=== PATIENT | male | born 1970 | race Caucasian/White ===

== ENCOUNTER 2019-11-22 23:40 | Emergency (ER) | payer OTHER ==
[~2019-11-22 23:40] MED LIST: ADVAIR 250/501 EA INH; AMOXIL500 MG PO; CATAFLAM50 MG PO; COMBIVENT1 ARO IH; KEFLEX500 MG PO; MEDROL DOSEPAK4 MG PO; NKHM PO; NORCO 325 MG-51 TAB PO; PERCOCET 325 MG1 TA2 PO; PERCOCET 325 MG1 TA7 PO; PROVENTIL0.09 MG/AC IH; SYMBICORT1 AE1 IH; TRAMADOL HCL50 MG PO; VICODIN ES 7501 TAB PO; Ventolin 02.5 MG/3 M INH
== END 2019-11-23 00:15 | disposition left against medical advice (07) ==
LOC: ED 23:40
DX: K13.79 Other lesions of oral mucosa (principal); Z53.21 Procedure and treatment not carried out due to patient leaving prior to being seen by health care provider

== ENCOUNTER → 2020-05-10 | Outpatient (CLI) | payer OTHER | END | disposition home or self-care (01) | LOC: RAD 09:33 | PROVIDERS: ATTEND Internal Medicine | DX: M54.5 Low back pain (principal); M25.511 Pain in right shoulder ==

== ENCOUNTER 2022-05-19 00:37 | Emergency (ER) | payer OTHER ==
[~2022-05-19] VITALS: Ht 162.5 cm; Wt 54.4 kg
[2022-05-19 00:50] LABS: ABG BASE EXCESS -1.7 mmol/L (-2.0-2.0); ARTERIAL BLOOD GAS PH 7.393 (7.35-7.45); ARTERIAL BLOOD GAS PO2 280.4 (80-90)
[2022-05-19 01:00] LABS: HEMATOCRIT 48.1 % (42.0-52.0); MEAN CELL VOLUME 95.8 fl (80.0-94.0); MEAN CORPUSCULAR HGB 33.7 pg (27.0-31.0); MEAN CORPUSCULAR HGB CONC 35.1 g/dl (33.0-37.0); MEAN PLATELET VOLUME 9.6 fl (9.6-12.3); PLATELET COUNT AUTOMATED 242 10*3/uL (130-400); RED BLOOD COUNT 5.02 10*6/uL (4.50-5.90); RED CELL DISTRI WIDTH 12.2 % (0-14.5); WHITE BLOOD COUNT 11.3 10*3/uL (4.8-10.8)
[2022-05-19 01:02] LABS: MANUAL DIFF REFLEX YES
[2022-05-19 01:16] LABS: ALKALINE PHOSPHATASE 78 U/L (46-116); BUN 6 mg/dl (9-23); CHLORIDE 103 mmol/L (98-107); SGPT/ALT 56 U/L (10-49); TOTAL PROTEIN 7.8 gm/dL (6.0-8.0)
[2022-05-19 01:21] LABS: PLATELET SUFFICIENCY NORMAL (NORMAL); TOTAL CELLS COUNTED 100 #CELLS
[2022-05-19 03:05] LABS: MYOGLOBIN 111.1 ng/ml (16-116)
== END 2022-05-19 03:12 | disposition left against medical advice (07) ==
LOC: ED 00:37
PROVIDERS: Emergency Medicine
DX: R55 Syncope and collapse (principal); R07.89 Other chest pain; Z98.890 Other specified postprocedural states; F17.200 Nicotine dependence, unspecified, uncomplicated

== ENCOUNTER 2025-01-03 02:58 | Emergency (ER) | payer OTHER ==
[~2025-01-03] VITALS: Ht 172.7 cm; Wt 97.5 kg
[2025-01-03 04:24] LABS: BUN 11 mg/dl (9-23); ETHYL ALCOHOL 122.4 mg/dl (<3)
[2025-01-03] MEDS ORDERED: METHOCARBAMOL750 M1 PO (06:19)
[2025-01-03] MEDS ORDERED: NAPROXEN250 MG PO (06:19)
== END 2025-01-03 06:29 | disposition left against medical advice (07) ==
LOC: ED 02:58
PROVIDERS: Internal Medicine
DX: S29.011A Strain of muscle and tendon of front wall of thorax, initial encounter (principal); Z53.29 Procedure and treatment not carried out because of patient's decision for other reasons; Z98.890 Other specified postprocedural states; W01.0XXA Fall on same level from slipping, tripping and stumbling without subsequent striking against object, initial encounter; Y93.89 Activity, other specified; Y92.89 Other specified places as the place of occurrence of the external cause; Y99.8 Other external cause status